=== PATIENT | male | born 1955 | race Two or more races ===

== ENCOUNTER 2022-12-27 20:20 | Emergency (ER) | payer BC ==
[~2022-12-27] VITALS: Ht 170.2 cm; Wt 108.9 kg
[2022-12-27] MEDS ORDERED: VALSARTAN-HCTZ1 EAC1 PO (21:23)
[2022-12-28] MEDS ORDERED: TAMS0.4C PO (07:50)
[2022-12-28] MEDS ORDERED: CIPRO500 MG PO (07:50)
[2022-12-28] MEDS ORDERED: KETO10TA2 PO (07:50)
[2022-12-28] MEDS ORDERED: POLY119PG PO (07:51)
== END 2022-12-28 07:55 ==
LOC: ER 20:20
DX: K59.00 Constipation, unspecified (principal); I10 Essential (primary) hypertension; N13.2 Hydronephrosis with renal and ureteral calculous obstruction